=== PATIENT | female | born 1975 | race African-American/Black ===

== ENCOUNTER → 2017-04-13 | Outpatient (CLI) | payer BC ==
--- NOTE | 2017-04-13 14:09 | KCIC ---
Five views lumbar spine Indication: Reason For Study Reason: BACK PAIN, FREQUENT FALLS, RT LEG PAIN / Spl. Instructions: / History: FINDINGS Alignment and curvature are within normal limits. No compression deformity. No pars defect. SI joints are open and corticated. Disc space heights are well preserved. IMPRESSION: Normal exam of the lumbar spine. Electronically signed by: Demarco Ghotra (April 13, 2017 14:08:02)
--- NOTE | 2017-04-13 14:12 | KCIC ---
AP and lateral thoracic spine Indication: Reason For Study Reason: BACK PAIN, FREQUENT FALLS / Spl. Instructions: / History: Findings: Alignment and curvature are within normal limits. Evaluation of the cervicothoracic junction is suboptimal due to overlying shoulder anatomy. No compression fracture is identified. Visualized lung bridges are clear. Impression: - No evidence for fracture of the thoracic spine. Electronically signed by: Demarco Ghotra (April 13, 2017 14:10:38)
== END | disposition home or self-care (01) ==
LOC: KCIC 10:57
PROVIDERS: ATTEND Physician Assistant
DX: M54.9 Dorsalgia, unspecified (principal); R29.6 Repeated falls; M79.604 Pain in right leg
CPT/HCPCS: 72072; 72110

== ENCOUNTER → 2017-06-07 | Day surgery (SDC) | payer BC ==
[~2017-06-07] MED LIST: CYPR4TAB PO; IV RINGERS,LACTATED 1000ML 1,000 ML IV SCH; LEVO175T5 PO; MIDAZOLAM HCL/PF 5 MG/5 ML VIAL. IV ONE; MIDAZOLAM HCL/PF 5 MG/5 ML VIAL. ONE; PROAIR HFA8.5 GM INH; diphenhydrAMINE 50 MG/ML VIAL IV ONE; diphenhydrAMINE 50 MG/ML VIAL ONE; fentaNYL PF VIAL 100 MCG/2 ML VIAL IV ONE; fentaNYL PF VIAL 100 MCG/2 ML VIAL ONE
[2017-06-07 15:40] LABS: NEG OBC UR NEG; POS OBC UR POS
[2017-06-07 17:35] VITALS: BP 125/67
--- NOTE | 2017-06-09 11:50 | PATHOLOGY ---
PATHOLOGY REPORT * * * * * * * * FINAL DIAGNOSIS: A. Colonic mucosa, "sigmoid polyp biopsy": - Tubular adenoma. - There is no evidence of high-grade dysplasia or malignancy. B. Colonic mucosa, "random colon biopsies": - Mild focal intraepithelial eosinophils and rare neutrophil consistent with focal active/infectious colitis. - Diagnostic features of inflammatory bowel disease are not seen. ([facility]:mgr; 06/09/2017) REPORT ELECTRONICALLY SIGNED BY: Angelito Anne M.D. DATE/TIME: 06/09/2017 11:49 * * * * * * * * GROSS PATHOLOGY: A. Received in formalin labeled "Yeimi Bettencourt, sigmoid polyp," is a segment of katz soft tissue measuring 0.4 cm in maximum dimension. The specimen is submitted entirely in cassette A1. B. Received in formalin labeled "random colon biopsies," are 4 segments of katz soft tissue ranging from 0.3 to 0.4 cm in maximum dimension. The specimen is submitted entirely in cassette B1. ([facility]; 06/08/17) INITIAL CPT CODE(S): A; 04820 B; 20541 Professional services performed [place] [facility] [place] [address] Technical services performed by [facility] at [address] [place] [address], [facility] [address] [address]. SPECIMEN(S) RECEIVED: A.Sigmoid polyp B.Random colon biopsies CLINICAL HISTORY: Abdominal pain PATIENT: YEMII BETTENCOURT /AGE: 806/30/1975 (Age: 41) PATIENT #: [id number] ALT CASE #: SPECIMEN COLLECTION DATE: 06/08/2017 SPECIMEN RECEIVED DATE: 06/08/2017 [facility] - [address] [place] [address] - PHONE: [phone] * * * END OF REPORT * * *
== END | disposition home or self-care (01) ==
LOC: SURG 15:20
PROVIDERS: ATTEND Internal Medicine Gastroenterology
DX: D12.5 Benign neoplasm of sigmoid colon (principal); K64.0 First degree hemorrhoids; K57.30 Diverticulosis of large intestine without perforation or abscess without bleeding; J45.909 Unspecified asthma, uncomplicated; D64.9 Anemia, unspecified; F41.9 Anxiety disorder, unspecified; Z98.51 Tubal ligation status; Z88.1 Allergy status to other antibiotic agents; Z88.3 Allergy status to other anti-infective agents; Z91.048 Other nonmedicinal substance allergy status
CPT/HCPCS: 45380; 45385; 81025; 88305; J1200; J2250; J3010

== ENCOUNTER → 2020-03-18 | Outpatient (CLI) | payer OTHER ==
[2017-06-07 17:35] VITALS: BP 125/67
[~2020-03-18] MED LIST changes: +ALBU2.5V8 INH; -CYPR4TAB PO; +CYPR4TAB31 PO; -IV RINGERS,LACTATED 1000ML 1,000 ML IV SCH; -MIDAZOLAM HCL/PF 5 MG/5 ML VIAL. IV ONE; -MIDAZOLAM HCL/PF 5 MG/5 ML VIAL. ONE; -PROAIR HFA8.5 GM INH; -diphenhydrAMINE 50 MG/ML VIAL IV ONE; -diphenhydrAMINE 50 MG/ML VIAL ONE; -fentaNYL PF VIAL 100 MCG/2 ML VIAL IV ONE; -fentaNYL PF VIAL 100 MCG/2 ML VIAL ONE
--- NOTE | 2020-03-18 17:20 | RAD ---
CHEST PA LATERAL History: Cough, covid exposure Comparison: None. Findings: 2 views of the chest are submitted. There is no infiltrate, pneumothorax, or effusion. Pericardial cardiac silhouette is within normal limits in size. Impression: 1. There is no radiographic evidence of acute cardiopulmonary disease. Electronically signed by: Bart Hoover MD (03/18/2020 5:17 PM) [facility]
== END ==
LOC: RAD 16:42
PROVIDERS: ATTEND Physician Assistant Medical
DX: J06.9 Acute upper respiratory infection, unspecified (principal); R05 Cough
CPT/HCPCS: 71046

== ENCOUNTER → 2020-07-15 | Outpatient (CLI) | payer OTHER ==
[2017-06-07 17:35] VITALS: BP 125/67
--- NOTE | 2020-07-15 16:58 | KCIC ---
Bilateral digital screening mammograms: Reason for examination: Routine screening. Comparison is made to previous study dated 07/24/2015. Interpretation was made with the benefit of CAD. The skin and nipples show no abnormalities. No abnormal axillary lymph nodes are seen. The breast parenchyma is extremely dense. (Breast density: Category D.) There continue to be small nodules bilaterally which probably represent intramammary lymph nodes and are stable. There does appear to be a small nodule seen on the right ovary likely you 6 cm posterior to the nipple and approximately 1 cm above the nipple line which appears to measure approximately 7.2 mm in size. There is also a small nodular parenchymal asymmetry posterior and inferiorly to the nipple on the right oblique view 6 cm posterior to the nipple at approximately 3 cm below the nipple line. A definite correlate on cc view is not identified for either of these findings. Further evaluation with coned compression views and ultrasound is recommended. There are no other dominant masses, suspicious calcifications or architectural distortion. A few benign calcifications are again seen. Impression: Small nodular densities suggested posterior in the right breast on oblique view. Recommend further evaluation with coned compression views and ultrasound. Your patient's mammogram demonstrates that she has dense breast tissue (breast density category C or D), which could hide abnormalities, and if she has other risk factors for breast cancer that have been identified, she might benefit from supplemental screening tests that may be suggested by you as her ordering physician. Dense breast tissue, in and of itself, is a relatively common condition. Therefore, this information is not provided to cause undue concern, but rather to raise your awareness and to promote discussion with your patient regarding the presence of other risk factors, in addition to dense breast tissue. Your patient's mammography results will be sent to her. BI-RAD Category 0: Incomplete. Needs additional imaging evaluation. "Our facility is accredited by the [employer] Mammography Program." This patient's information has been entered into a reminder system for the patient to be notified with the results of her examination and a target date for the next mammogram. Electronically signed by: Maddie Merlos MD (07/15/2020 4:55 PM) [id number]
== END | disposition home or self-care (01) ==
LOC: KCIC MAMMO 12:49
PROVIDERS: ATTEND Family Medicine
DX: Z12.31 Encounter for screening mammogram for malignant neoplasm of breast (principal); N64.89 Other specified disorders of breast
CPT/HCPCS: 77067

== ENCOUNTER → 2020-08-13 | Outpatient (CLI) | payer OTHER ==
[2017-06-07 17:35] VITALS: BP 125/67
--- NOTE | 2020-08-13 11:06 | KCIC ---
EXAM: Right breast diagnostic mammogram; right breast sonogram. HISTORY: 45-year-old female presents for evaluation of nodularity within the right breast demonstrated on a mammogram dated 07/15/2020. TECHNIQUE:/Compression views of the right breast are obtained. Sonographic imaging of the right breast including all 4 quadrants and the retroareolar joint was also performed. COMPARISON: Mammogram dated 07/15/2020 and 07/24/2015 and sonogram dated 08/18/2015. BREAST PARENCHYMAL DENSITY: Level D - Extremely dense. FINDINGS: The nodular asymmetries within the right breast are less conspicuous with the spot compression views. There is no architectural distortion or suspicious calcification. Sonographic imaging of the right breast demonstrates a 7 mm suspected cyst at the 9:30 position 3 cm from the nipple, possibly corresponding with a nodular asymmetry of concern on the prior screening mammographic images. No suspicious sonographic lesion is seen. There are benign axillary lymph nodes. IMPRESSION: 1. Decreased conspicuity of nodular asymmetries within the right breast with additional mammographic views, one of which may correspond with a 7 mm cyst at the 9:30 position 3 cm from the nipple demonstrated sonographically. 2. BI-RADS Category 3: Probably benign finding(s). Short term follow up with a diagnostic right breast mammogram in 6 months is recommended to confirm mammographic stability. If your mammogram demonstrates that you have dense breast tissue, which could hide abnormalities, and if you have other risk factors for breast cancer that have been identified, you might benefit from supplemental screening tests that may be suggested by your ordering physician. Dense breast tissue, in and of itself, is a relatively common condition. This information is not provided to cause undue concern, but rather to raise your awareness and to promote discussion with your physician regarding the presence of other risk factors, in addition to dense breast tissue. A report of your mammography results will be sent to you and your physician. You should contact your physician if you have any questions or concerns regarding this report. Mammography is a sensitive method for finding small breast cancers, but it does not detect them all and is not a substitute for careful clinical examination. A negative mammogram does not negate a clinically suspicious finding and should not result in delay in biopsying a clinically suspicious abnormality. PQRS compliance statement - Patient information was entered into a reminder system with a target due date for the next mammogram. "Our facility is accredited by the [employer] Mammography [employer]." Electronically signed by: Bekah Smith MD (08/13/2020 11:03 AM) [id number]
== END | disposition home or self-care (01) ==
LOC: KCIC MAMMO 09:56
PROVIDERS: ATTEND Family Medicine
DX: R92.8 Other abnormal and inconclusive findings on diagnostic imaging of breast (principal); N60.01 Solitary cyst of right breast
CPT/HCPCS: 76641; 77065

== ENCOUNTER → 2021-02-13 | Outpatient (CLI) | payer OTHER ==
[2017-06-07 17:35] VITALS: BP 125/67
[~2021-02-13] MED LIST changes: +FLUT9.9S NS; +HYDR-2761 PO; +LEVO137T3 PO; +NAPR-683 PO; +PENI500T PO; +SULF1TAB24 PO; +depo-provera
== END ==
LOC: LAB 11:09
PROVIDERS: ATTEND Obstetrics & Gynecology
DX: Z01.812 Encounter for preprocedural laboratory examination (principal); Z20.822 Contact with and (suspected) exposure to COVID-19; R10.2 Pelvic and perineal pain
CPT/HCPCS: U0003

== ENCOUNTER 2021-02-18 06:18 | Observation (INO) | payer OTHER ==
[~2021-02-18] VITALS: Ht 147.3 cm; Wt 56.7 kg
[2021-02-18] VITALS (11 sets, daily range): BP systolic 96–120; BP diastolic 55–70
[~2021-02-18 06:18] MED LIST changes: +IV RINGERS,LACTATED 1000ML 1,000 ML IV SCH; -PENI500T PO; +PROCHLORPERAZINE 10 MG/2 ML VIAL. IVP PRN; +ceFAZolin SODIUM IV Push 1 GM VIAL. IVP PRN; +fentaNYL PF VIAL 100 MCG/2 ML VIAL IVP PRN
[2021-02-18] MEDS ORDERED: LIDOCAINE 2% PF 5 ML VIAL. ONE (06:44)
[2021-02-18] MEDS ORDERED: PROPOFOL 10 MG/ML (20ML) VIAL. IV ONE (06:44)
[2021-02-18] MEDS ORDERED: ROCURONIUM 50 MG/5 ML VIAL. ONE (06:45)
[2021-02-18] MEDS ORDERED: PENI500T PO (06:52)
[2021-02-18] MEDS ORDERED: METHYLENE BLUE 0.5% 10ml AMPULE. ONE (07:21)
[2021-02-18 07:28] LABS: CALCIUM 8.8 mg/dL (8.5-10.1); CREATININE 1.2 mg/dL (0.6-1.0); GFR 58.8; POTASSIUM 3.6 mmol/L (3.5-5.1)
[2021-02-18 07:30] LABS: BASO # 0.1 x10^3/uL (0.0-0.2); BASO % 1 % (0-3); EOS # 0.2 x10^3/uL (0.0-0.7); EOS % 2 % (0-3); HEMATOCRIT 36.5 % (36.0-47.0); HEMOGLOBIN 12.4 g/dL (12.0-15.5); LYMPH # 4.2 x10^3/uL (1.0-4.8); LYMPH % 39 % (24-48); MEAN CORPUSCULAR HEMOGLOBIN 32 pg (25-35); MEAN CORPUSCULAR HGB CONC 34 g/dL (31-37); MEAN CORPUSCULAR VOLUME 95 fL (79-100); MONO % 9 % (0-9); NEUT # 5.3 x10^3/uL (1.8-7.7); NEUT % 49 % (31-73); PLATELET COUNT 307 x10^3/uL (140-400); RED BLOOD COUNT 3.86 x10^6/uL (3.50-5.40); RED CELL DISTRIBUTION WIDTH 13.7 % (11.5-14.5); WHITE BLOOD COUNT 10.7 x10^3/uL (4.0-11.0)
[2021-02-18] MEDS ORDERED: fentaNYL PF VIAL 250 MCG/5 ML VIAL ONE (08:22)
[2021-02-18] MEDS ORDERED: MIDAZOLAM HCL/PF 2 MG/2 ML VIAL. ONE (08:22)
[2021-02-18] MEDS ORDERED: ONDANSETRON PF 4 MG/2 ML VIAL. ONE ×3 (08:31→16:15)
[2021-02-18] MEDS ORDERED: DEXAMETHASONE SOD PHOS 4 MG/ML VIAL ONE (08:31)
[2021-02-18] MEDS ORDERED: NEOSTIGMINE METHYLSULFATE 5 MG/5 ML SYRINGE. ONE (09:31)
[2021-02-18] MEDS ORDERED: GLYCOPYRROLATE 1 MG/5 ML VIAL. ONE (09:31)
[2021-02-18] MEDS ORDERED: SEVOFLURANE > 120 MINUTES. IH ONE (09:34)
[2021-02-18] MEDS ORDERED: ONDANSETRON PF 4 MG/2 ML VIAL. IVP ONE (09:45)
[2021-02-18] MEDS ORDERED: 0.9 % SODIUM CHLORIDE 10 ML DISP.SYRIN. IV PRN (10:00)
[2021-02-18] MEDS ORDERED: IV NORMAL SALINE 1000ML BAG 1,000 ML IV SCH (10:00)
[2021-02-18] MEDS ORDERED: KETOROLAC 15 MG/ML VIAL. IV PRN (10:00)
[2021-02-18] MEDS ORDERED: MORPHINE SULFATE 2 MG/ML VIAL. IV PRN ×2 (10:00)
[2021-02-18] MEDS ORDERED: DEXTROSE 50% 25 GM / 50ML DISP.SYRIN. IV PRN (10:00)
[2021-02-18] MEDS ORDERED: IBUPROFEN 200 MG TABLET. PO PRN (10:00)
[2021-02-18] MEDS ORDERED: oxyCODONE/APAP 5/325 1 TAB TABLET PO PRN (10:00)
[2021-02-18] MEDS ORDERED: diphenhydrAMINE HCL 25 MG CAPSULE PO PRN (10:00)
[2021-02-18] MEDS ORDERED: IV DEXTROSE 5 %-0.45 % NACL 1,000 ML IV SCH (10:00)
[2021-02-18] MEDS ORDERED: diphenhydrAMINE 50 MG/ML VIAL IV PRN (10:00)
[2021-02-18] MEDS ORDERED: NALOXONE 0.4 MG/ML VIAL. IV PRN (10:00)
[2021-02-18] MEDS ORDERED: fentaNYL PF VIAL 100 MCG/2 ML VIAL ONE (10:06)
[2021-02-18] MEDS: fentaNYL PF VIAL 100 MCG/2 ML VIAL IVP PRN ×2 (10:07→10:13)
[2021-02-18] MEDS ORDERED: MORPHINE SULFATE 2 MG/ML VIAL. ONE (10:20)
[2021-02-18] MEDS: MORPHINE SULFATE 2 MG/ML VIAL. IVP PRN ×2 (10:23→10:34)
[2021-02-18] MEDS ORDERED: HYDROmorphone 2 MG/ML VIAL ONE (10:41)
[2021-02-18] MEDS: HYDROmorphone 2 MG/ML VIAL IVP PRN ×2 (10:43→10:56)
[2021-02-18] MEDS ORDERED: IV RINGERS,LACTATED 1000ML 1,000 ML IV SCH (12:30)
--- NOTE | 2021-02-18 13:19 | PDOC4 ---
OPERATIVE NOTE: PreOp Dx: 1.) Pelvic pain, 2.) Irregular cycles, 3.) Diverticulitis - h/o colon resection, 4.) Tob use PostOp Dx: same Procedure LAVH/BSO Surgeon: Kareem Ackerman Anesthesia: GETA EBL: 200 cc Fluids: 1800 cc UOP: 400 cc Complications: None Findings: Small adhesions of left tube and ovary to bowel. Otherwise nml uterus, tubes, and ovaries. Pathology: uterus, tubes and ovaries BHAVNA ACKERMAN MD Feb 18, 2021 13:19
--- NOTE | 2021-02-18 13:39 | OP ---
DATE OF SURGERY: 02/18/2021 PREOPERATIVE DIAGNOSES: 1. Pelvic pain. 2. Irregular cycles. 3. Diverticulitis with a history of a colon resection. 4. Tobacco use. POSTOPERATIVE DIAGNOSES: 1. Pelvic pain. 2. Irregular cycles. 3. Diverticulitis with a history of a colon resection. 4. Tobacco use. PROCEDURE: Laparoscopic-assisted vaginal hysterectomy with bilateral salpingo-oophorectomy. SURGEON: Pierre Ackerman MD ANESTHESIA: General endotracheal intubation. ESTIMATED BLOOD LOSS: 200 mL. FLUIDS: 1800 mL. URINE OUTPUT: 400 mL. COMPLICATIONS: None. FINDINGS: Small adhesions of the left tube and ovary to small bowel, otherwise normal uterus, tubes and ovaries. PATHOLOGY: Uterus, tubes and ovaries. DESCRIPTION OF PROCEDURE: The patient was taken to the operating room where general endotracheal intubation was obtained without difficulty. The patient was prepped and draped in normal sterile fashion. Attention was first turned to the vagina where speculum was placed to visualize the cervix. The anterior lip of the cervix was then grasped with a single tooth tenaculum and acorn uterine manipulator was then placed into the cervix. At that point, the speculum was removed. Quiroz catheter was then placed. Attention was then turned to the abdomen where a 5 mm skin incision was placed in the infraumbilical fold. Veress needle was introduced into the incision. The abdomen was then insufflated to 15 mmHg. At that point, the Veress needle was removed, 5 mm trocar was then placed directly into the abdominal cavity. Intra-abdominal placement was confirmed with the laparoscope. Visualization of the pelvis revealed a relatively normal-appearing uterus, tubes and ovaries. At that point, a second trocar was then placed on the left approximately two-thirds between the ischial spine and umbilicus, first by making a 5 mm skin incision followed by placing a 5-mm trocar under direct visualization of the laparoscope. At that point, a third trocar was then placed on the right. Again, approximately two-thirds between the ischial spine and the umbilicus, first by making a 5 mm skin incision and then placing a 5-mm trocar under direct visualization of the laparoscope. At that point manipulating the ovaries to be visualized revealed that the ovary was free on the right, but there were some thin adhesions of the left ovary to the small bowel . This was taken down bluntly with the retractor. Once normal anatomy had been restored, attention was turned to the left where the left tube was grasped. Once the tube and ovary were elevated, allowed for identification of the infundibulopelvic ligament. Once identified, the LigaSure device was used to ligate the infundibulopelvic ligament and the coagulation and cutting was continued to the round ligament on the left. At that point, the LigaSure device was used to coagulate and cut through the round ligament on the left. At that point, the LigaSure device was used to serially coagulate and cut to the uterine pedicles. At that point, a bladder flap was created. Once the bladder flap was brought to the midline, attention was then turned to the right where again the right tube was elevated to allow for identification of the infundibulopelvic ligament on the right. This pedicle was then taken down, coagulated and cut with the LigaSure device. Once the level of the round ligament, this was then coagulated and cut with the LigaSure device and additional bites were taken of the uterine pedicles and the completion of the bladder flap. Once that had been done, the instruments were removed and attention was then turned to the vagina where the acorn manipulator was removed. A second tenaculum was then placed on the posterior lip of the cervix. The cervix was then circumferentially cut with the Bovie device. At that point, the pubovesical cervical fascia was then dissected from the bladder with Metzenbaum scissors. Once the anterior cul-de-sac was entered, attention was then turned to the posterior cul-de-sac where Hernandez scissors were used to cut posteriorly. At that point, the Usama clamp was placed around the left uterosacral ligament. This was then cut and tagged. The right uterosacral ligament was then grasped with a Usama clamp, cut and then tagged. At that point, the uterus was serially cut, clamped and tied until all pedicles were free. At that point, the uterus was delivered. The right tube and ovary were attached to the specimen, but the left tube and ovary remained when the final pedicles were cut. The Usama clamp was then used to clamp the attachment of the left tube and ovary and this was cut and freed. This was sent with the rest of the specimen. At that point, good hemostasis was noted. At that point, the vaginal cuff was then closed first by making a [id number] stitch on the left lateral edge with the first pass including the left uterosacral ligament. This was then tagged. Attention was then turned to the right side of the vaginal cuff where a wvutey-ca-pqbhg stitch was placed. With the first pass including the right uterosacral ligament, three additional kqcchs-tc-[id number] stitches were then placed to close the remainder of the cuff. At that point, good hemostasis was noted. Attention was then turned to the abdomen, which was reinsufflated. Good hemostasis was noted. Visualization of the ureters revealed good peristalsing bilaterally. At that point, the instruments were removed as well as the trocar. The skin was then closed with 3-0 Monocryl in a subcuticular manner. The sponges, laps, and needles were correct x 3. The patient was then brought to the recovery room in stable condition. PIERRE ACKERMAN MD DR: LILLY/blanca JOB#: [id number] / [id number] LUNA
--- NOTE | 2021-02-18 17:29 | NUR ---
Pt walked in room at 1530 and no dizzyness and no pain. After getting back in bed complained of not feeling well and she states she feels the same as after last surgery. States she does not know what is wrong but maybe anxiety. V?S good and abd soft alanis draining well, no vag bleeding and inc sites dry and intact. After 30 min pt states she is doing better and feels like she was trying to have an anxiety attack . At 1700 pt sleeping with remaining at bedside. Pt had morphine the prior hour before walking
[2021-02-18] MEDS ORDERED: KETOROLAC 30 MG/ML VIAL. INJ PRN (18:15)
--- NOTE | 2021-02-18 18:30 | NUR ---
alanis out per pt request and then have pain and anxiety after returning to bed. Instruted to eat so I could give percocet since toradol did not work as much as needed. Has been up walking a lot in room then lays down.
[2021-02-18] MEDS: oxyCODONE/APAP 5/325 1 TAB TABLET PO PRN ×2 (19:07→23:54)
[2021-02-18] MEDS ORDERED: ALPRAZolam 0.25 MG TABLET PO ONE (20:00)
[2021-02-18] MEDS: DOCUSATE SODIUM 100 MG CAPSULE. PO SCH (21:00)
[2021-02-19] VITALS: BP 122/65
[2021-02-19 04:30] VITALS: BP 109/59
[2021-02-19] MEDS: oxyCODONE/APAP 5/325 1 TAB TABLET PO PRN ×2 (04:34→09:33)
[2021-02-19 07:00] VITALS: BP 102/63
[2021-02-19 08:48] LABS: BASO # 0.1 x10^3/uL (0.0-0.2); BASO % 1 % (0-3); EOS % 0 % (0-3); HEMATOCRIT 32.4 % (36.0-47.0); HEMOGLOBIN 11.6 g/dL (12.0-15.5); LYMPH # 3.3 x10^3/uL (1.0-4.8); LYMPH % 24 % (24-48); MEAN CORPUSCULAR HEMOGLOBIN 33 pg (25-35); MEAN CORPUSCULAR HGB CONC 36 g/dL (31-37); MEAN CORPUSCULAR VOLUME 92 fL (79-100); MONO # 1.3 x10^3/uL (0.0-1.1); MONO % 9 % (0-9); NEUT # 9.3 x10^3/uL (1.8-7.7); NEUT % 67 % (31-73); PLATELET COUNT 308 x10^3/uL (140-400); RED BLOOD COUNT 3.51 x10^6/uL (3.50-5.40); RED CELL DISTRIBUTION WIDTH 13.7 % (11.5-14.5)
[2021-02-19] MEDS: DOCUSATE SODIUM 100 MG CAPSULE. PO SCH (09:21)
[2021-02-19 09:29] LABS: CALCIUM 8.8 mg/dL (8.5-10.1); GFR 72.5; POTASSIUM 3.9 mmol/L (3.5-5.1)
--- NOTE | 2021-02-19 09:30 | NUR ---
Resting quietly in bed. No c/o at this time. Eating and voiding without difficulty. Anxious to go home today. Cont. monitor.
[2021-02-19] MEDS ORDERED: ALPRAZolam 0.5 MG TABLET PO ONE (11:00)
[2021-02-19 11:15] VITALS: BP 122/62
[2021-02-19] MEDS ORDERED: DOCU-109 PO (11:22)
[2021-02-19] MEDS ORDERED: OXYC1TAB15 PO (11:22)
[2021-02-19] MEDS ORDERED: IBUP-1060 PO (11:22)
--- NOTE | 2021-02-19 11:38 | PDOC ---
CHILDREN TEACHER PROGRESS NOTE Date of Service: DATE: 02/19/21 TIME: 11:37 Subjective: Pt with good pain control. Nicho PO. Voiding. Pt with some anxiety last night. Desired Xanax to help calm nerves. Objective: Vital Signs: Vital Signs Date Time Temp Pulse Resp B/P (MAP) Pulse Ox O2 Delivery O2 Flow Rate FiO2 02/18/21 09:46 97.8 84 18 173/85 98 Simple Mask 6 97.8 Vital Signs Date Time Temp Pulse Resp B/P (MAP) Pulse Ox O2 Delivery O2 Flow Rate FiO2 02/19/21 11:15 98.4 62 18 122/62 (82) 97 Room Air 98.4 02/19/21 00:00 98.0 Labs: Laboratory Tests Test 02/19/21 07:30 White Blood Count 14.0 x10^3/uL (4.0-11.0) H Red Blood Count 3.51 x10^6/uL (3.50-5.40) Hemoglobin 11.6 g/dL (12.0-15.5) L Hematocrit 32.4 % (36.0-47.0) L Mean Corpuscular Volume 92 fL (79-100) Mean Corpuscular Hemoglobin 33 pg (25-35) Mean Corpuscular Hemoglobin Concent 36 g/dL (31-37) Red Cell Distribution Width 13.7 % (11.5-14.5) Platelet Count 308 x10^3/uL (140-400) Neutrophils (%) (Auto) 67 % (31-73) Lymphocytes (%) (Auto) 24 % (24-48) Monocytes (%) (Auto) 9 % (0-9) Eosinophils (%) (Auto) 0 % (0-3) Basophils (%) (Auto) 1 % (0-3) Neutrophils # (Auto) 9.3 x10^3/uL (1.8-7.7) H Lymphocytes # (Auto) 3.3 x10^3/uL (1.0-4.8) Monocytes # (Auto) 1.3 x10^3/uL (0.0-1.1) H Eosinophils # (Auto) 0.0 x10^3/uL (0.0-0.7) Basophils # (Auto) 0.1 x10^3/uL (0.0-0.2) Sodium Level 138 mmol/L (136-145) Potassium Level 3.9 mmol/L (3.5-5.1) Chloride Level 103 mmol/L (98-107) Carbon Dioxide Level 23 mmol/L (21-32) Anion Gap 12 (6-14) Blood Urea Nitrogen 9 mg/dL (7-20) Creatinine 1.0 mg/dL (0.6-1.0) Estimated GFR (Cockcroft-Gault) 72.5 Glucose Level 80 mg/dL (70-99) Calcium Level 8.8 mg/dL (8.5-10.1) Laboratory Tests 02/19/21 07:30 Laboratory Tests 02/19/21 07:30 Laboratory Tests 02/19/21 07:30 Physical Exam: GENERAL: No apparent distress. Alert and oriented. HEENT: Head normocephalic, atraumatic. NECK: Supple LUNGS: Clear to auscultation. HEART: RRR, S1, S2 present, pulses intact ABDOMEN: Soft, positive bowel sounds. EXTREMITIES: No cyanosis or edema. NEUROLOGIC: Normal speech, normal tone PSYCHIATRIC: Normal affect, normal mood. SKIN: No ulceration. Inc: dressing dry Assessment & Plan: A/P 45y POD #1 s/p LAVH/BSO 1.) PO doing well, path pending 2.) Indications - pelvic pain and irregular cycles 3.) Diverticulitis - h/o colon resection 4.) Menopause discussed symptoms of menopause, since 45yo will not start estrogen unless symptomatic 5.) Asthma, Graves dz - per PCP 6.) Tob use - discussed cessation 7.) D/c home BHAVNA ACKERMAN MD Feb 19, 2021 11:38
--- NOTE | 2021-02-19 12:30 | NUR ---
Discharge instructions given with prescriptions. Answered questions and concerns. Verbalized understanding. Discharged home accompanied by significant other, escorted out by w/c.
--- NOTE | 2021-02-19 20:41 | DS ---
DATE OF DISCHARGE: 02/19/2021 ADMISSION DIAGNOSES: 1. Pelvic pain. 2. Irregular cycles. 3. Diverticulitis with a history of colon resection. 4. Asthma. 5. Graves' disease. 6. Tobacco use. DISCHARGE DIAGNOSES: 1. Pelvic pain. 2. Irregular cycles. 3. Diverticulitis with a history of colon resection. 4. Asthma. 5. Graves' disease. 6. Tobacco use. PROCEDURE: Laparoscopic-assisted vaginal hysterectomy with bilateral salpingo-oophorectomy. BRIEF HOSPITAL COURSE: The patient is a 45-year-old 6, para 3-1-2-4 who presented to the office for evaluation and treatment of back pain. The patient reported that the pain began in her left back and radiates to her legs. An UA was performed, which returned normal. The patient also had associated symptoms of nausea and vomiting. The patient had pelvic pain that became worse over the last 3 months. Most of it was associated with her periods, which also was associated with nausea, vomiting, diarrhea. The patient had a history of ovarian cyst, but none were seen on recent ultrasound. The patient had attempted medical management in the past without success and desired definitive treatment. The patient was counseled on laparoscopic assisted vaginal hysterectomy. Due to her age of 45, discussion was held with the patient regarding the risks, benefits of bilateral salpingo-oophorectomy. The patient desired to have her ovaries removed. The patient underwent said procedure on 02/18/2021; see operative note for full detail. The first night after surgery, the patient experienced significant anxiety. She said it was similar to the last time she had surgery. The patient was given Xanax 0.5 with good relief of her symptoms. The following morning, the patient was doing well and met all discharge criteria and was subsequently discharged home. Of note, the patient was noted to have a hemoglobin of 12.4 on her preoperative testing and after surgery was found to be 11.6. The patient also had a creatinine at her preoperative visit, which was 1.2 and after surgery was found to be 1.0. Discussion was held with the patient regarding symptoms of menopause; due to her age of 45, she was not started on estrogen patch. The patient was told if she did develop symptoms to inform me and we would consider starting estrogen replacement therapy. DISCHARGE INSTRUCTIONS: The patient was told not to lift anything greater than 20 pounds, have pelvic rest for 6 weeks, not to drive on narcotics. CALL IF: The patient was to call if she had fevers, chills, nausea, vomiting, abdominal pain or any additional questions or concerns. FOLLOWUP APPOINTMENT: The patient is to follow up in the office on 02/25/2021 at 9:00 a.m. DISCHARGE MEDICATIONS: The patient was given a prescription for Percocet 5, 15 pills; Motrin 800 mg, 30 pills and Colace 100 mg 30 pills. BHAVNA ACKERMAN MD DR: LILLY/blanca JOB#: [id number] / [id number] LUNA
--- NOTE | 2021-02-23 08:08 | PATHOLOGY ---
[facility] Accession Number: [id number] . 01 Material submitted: . uterus - UTERUS,CERVIX,RIGHT AND LEFT TUBE AND OVARY . 01 Clinical history: . BACK PAIN,PELVIC PAIN . 02 Diagnosis: Uterus with attached right adnexa and detached left adnexa, laparoscopic assisted vaginal hysterectomy with bilateral salpingo-oophorectomy: - Adenomyosis, uterine corpus, focal. - Mild chronic cervicitis with focal squamous metaplasia. - Nabothian cysts, cervix, multiple. - Uterine serosal adhesions, focal. - Inactive/weakly proliferative endometrium. - Bilateral fallopian tubes showing no diagnostic abnormalities. - Cystic follicles of bilateral ovaries, several. (JPM:[facility] 02/20/2021) [facility] 02/20/2021 1631 Local . 02 Comment: There is no atypia or evidence of malignancy. (JP:[facility] 02/20/2021) . 02 Electronically signed: . Jordan Mitchell MD, Pathologist NPI- [id number] . 01 Gross description: . Fixative: Formalin Labeled: Uterus, cervix, right tube and ovary attached, left tube and ovary Specimen received: Uterus, attached right adnexa, detached left adnexa Uterus weight: 92 g Uterus: 7.9 x 5.5 x 4.4 cm Serosa: Union-katz, smooth with a slight amount of overlying adhesions measuring 1.5 x 0.8 cm Ectocervix: Pale katz to hawkins-katz, glistening Cervical os: Slit-like, measuring 1.0 cm Endocervical canal: 2.5 cm Endometrial cavity: Triangular, 4.1 x 1.6 cm Endometrium: Pale katz, glistening Endometrial thickness: 0.1 cm Myometrium: Katz-pink, trabeculated Myometrium thickness: Up to 2.5 cm Lesions/abnormalities: None identified Left fallopian tube: Less than 1 g, fimbriated, 0.9 cm in length, 0.4 cm in diameter Left fallopian tube cut surface: Patent lumen Left ovary: 3 g, 2.0 x 1.5 x 1.0 cm Left ovary cut surface: Several cystic structures ranging in size from 0.3-0.6 cm filled with blood-tinged fluid. The remaining cut surfaces display pale katz, normal ovarian stroma. Right fallopian tube: 2 g, fimbriated, 3.0 cm in length, 0.5 cm in diameter, Right fallopian tube cut surface: Pinpoint to patent lumen Right ovary: 5 g, 2.9 x 2.3 x 1.2 cm Right ovary cut surface: Multiple cystic structures ranging in size from 0.3-0.5 cm filled with blood-tinged fluid. The remaining cut surfaces display pale katz, normal ovarian stroma. . Ruling Machine Set Up Operator sections are submitted as follows: A1 12:00 cervix A2 6:00 cervix A3 serosal adhesions A4 anterior endomyometrium A5 posterior endomyometrium A6 left adnexa A7 right adnexa. ([facility]; 02/19/2021) QA/[facility] 02/19/2021 1631 Local . 02 Pathologist provided ICD-10: N72, N88.8, N80.0, R10.2 . 02 CPT . 451378 Specimen Comment: A courtesy copy of this report has been sent to [phone] Specimen Comment: Report sent to Performed at: 01 [facility] [address], [place] [id number] MD Angelito Anne MD Phone: [phone] Performed at: 02 [facility] [address], [place] [id number] MD Jordan Mitchell MD Phone: [phone]
== END 2021-02-19 12:30 | disposition home or self-care (01) ==
LOC: SURG 06:18 → 3 NORTH 09:50
PROVIDERS: ADMIT Obstetrics & Gynecology; ATTEND Obstetrics & Gynecology
DX: R10.2 Pelvic and perineal pain (principal); N92.6 Irregular menstruation, unspecified; K57.92 Diverticulitis of intestine, part unspecified, without perforation or abscess without bleeding; J45.909 Unspecified asthma, uncomplicated; D25.9 Leiomyoma of uterus, unspecified; K66.0 Peritoneal adhesions (postprocedural) (postinfection); E05.00 Thyrotoxicosis with diffuse goiter without thyrotoxic crisis or storm; F41.9 Anxiety disorder, unspecified; Z90.49 Acquired absence of other specified parts of digestive tract; Y83.4 Other reconstructive surgery as the cause of abnormal reaction of the patient, or of later complication, without mention of misadventure at the time of the procedure
CPT/HCPCS: 36415; 58552; 80048; 81025; 85025; 86850; 86900; 86901; 96361; 96374; A4314; A4364; A4930; G0378; G0379; J0690; J0780; J1100; J1170; J1885; J2250; J2270; J2405; J2704; J2710; J3010; J3490; J7120; A4322; A4452; A4657; Q9968